=== PATIENT | female | born 1970 | race Caucasian/White ===

== ENCOUNTER 2018-10-14 14:24 | Inpatient (IN) | payer MEDICARE, MEDICAID ==
--- NOTE | 2018-10-14 14:48 | ED.PDOC ---
History of Present Illness - General Chief Complaint: Respiratory Problem Stated Complaint: cough and thinks she has pneumonia Time Seen by Provider: 10/14/18 14:34 Source: patient Exam Limitations: no limitations - History of Present Illness Initial Comments: Patient presents with a cough productive of yellow sputum for one week . She says that her breathing has become more "raspy" on the right side. It is worse when she lies on her right side. No dyspnea. + subjective fever. No other complaints. Timing/Duration: 1 week Severity: moderate Improving Factors: nothing Worsening Factors: nothing Associated Symptoms: denies symptoms Allergies/Adverse Reactions: Allergies Hydrocodone Adverse Reaction (Verified 10/14/18 14:30) Review of Systems - Review of Systems Constitutional: States: fever EENTM: States: no symptoms reported Respiratory: States: see HPI Cardiology: States: no symptoms reported Gastrointestinal/Abdominal: States: no symptoms reported Genitourinary: States: no symptoms reported Musculoskeletal: States: no symptoms reported Skin: States: no symptoms reported Neurological: States: no symptoms reported Endocrine: States: no symptoms reported Hematologic/Lymphatic: States: no symptoms reported Past Medical History (General) - Patient Medical History Hx Hypertension: Yes Hx Cancer: No Hx Hepatitis C: No Surgical History: Hysterectomy - Vaccination History Hx Tetanus, Diphtheria Vaccination: Yes Hx Influenza Vaccination: No - Social History Hx Alcohol Use: Yes - occ Hx Substance Use: No Hx Substance Use Treatment: No Hx Depression: No Family Medical History - Family History Mother Family History: Unknown Physical Exam - Physical Exam General Appearance: Alert Respiratory: other - rales in the left lower lobe and right middle lobe. No wheezes or rhonchi Cardiovascular/Chest: regular rate, rhythm Gastrointestinal/Abdominal: normal bowel sounds, non tender, soft Skin Exam: normal color Lymphatic: no adenopathy Progress - Progress Progress: 10/14/18 17:32 Laboratory Tests 10/14/18 10/14/18 10/14/18 15:12 15:12 15:12 WBC 13.1 H RBC 4.52 Hgb 14.5 Hct 42.8 MCV 94.8 MCH 32.2 H MCHC 34.0 RDW 14.5 Plt Count 168 MPV 8.8 Absolute Neuts (auto) 11.80 H Absolute Lymphs (auto) 0.70 L Absolute Monos (auto) 0.50 Absolute Eos (auto) 0.00 Absolute Basos (auto) 0.00 Neutrophils % 90.3 H Lymphocytes % 5.6 L Monocytes % 4.1 Eosinophils % 0.0 L Basophils % 0.0 pCO2 pO2 HCO3 ABG pH ABG O2 Saturation ABG Base Excess ABG Deoxyhemoglobin Oxyhemoglobin % Carboxyhemoglobin % Methemoglobin % Sat Calc Total Hemoglobin Sodium 136 Potassium 1.8 L* Chloride 76 L* Carbon Dioxide 44 H Anion Gap 17.8 BUN 20 H Creatinine 0.64 BUN/Creatinine Ratio 31.3 H Random Glucose 378 H Hemoglobin A1c 9.0 H Serum Osmolality 290.1 Calcium 8.8 Total Bilirubin 2.3 H* AST 45 H ALT 92 H Alkaline Phosphatase 248 H Serum Total Protein 6.2 L Albumin 3.4 Globulin 2.8 Albumin/Globulin Ratio 1.2 TSH Thyroxine (T4) Serum Ketones 10/14/18 10/14/18 10/14/18 15:12 15:12 16:05 WBC RBC Hgb Hct MCV MCH MCHC RDW Plt Count MPV Absolute Neuts (auto) Absolute Lymphs (auto) Absolute Monos (auto) Absolute Eos (auto) Absolute Basos (auto) Neutrophils % Lymphocytes % Monocytes % Eosinophils % Basophils % pCO2 43 pO2 51 L HCO3 45.9 ABG pH 7.630 H* ABG O2 Saturation 92.0 L ABG Base Excess 20.9 ABG Deoxyhemoglobin 7.4 H Oxyhemoglobin % 84.6 L Carboxyhemoglobin % 6.1 H Methemoglobin % Sat 1.9 H Calc Total Hemoglobin 12.4 Sodium Potassium Chloride Carbon Dioxide Anion Gap BUN Creatinine BUN/Creatinine Ratio Random Glucose Hemoglobin A1c Serum Osmolality Calcium Total Bilirubin AST ALT Alkaline Phosphatase Serum Total Protein Albumin Globulin Albumin/Globulin Ratio TSH 1.44 Thyroxine (T4) 5.28 L Serum Ketones Moderate CXR showed right middle lobe pneumonia. Patient given Rocephin 1 gram IV and Azithromycin 500 mg po x one in the ER. She was started on one liter NS and her potassium came back at 1.8. She was then started on potassium 40 meq IV in the E.R. The patient could not give a reason or any history that might indicate why her potassium was so low. She denies taking any diuretics or any history of hypokalemia. Her blood sugar was also 378. She denied any history of diabetes mellitus. I did a HbA1c and it was 9.0, confirming DM. She was given a second liter of NS in the ER. She had moderate ketones but was not given any insulin because of the potassium of 1.8. ABG showed a pH of 7.63 and 51 mmHg oxygen. She was started on oxygen by [place]. Her EKG showed NSR with visible T waves. She was admitted for pneumonia, new onset diabetes mellitus, hypokalemia, and hypoxemia. The plan was discussed with the patient, questions were elicited and answered, she voiced understanding and agreement with the plan. Departure - Departure Clinical Impression: Hypoxemia, Pneumonia, Hyperglycemia, Hypokalemia Disposition: Admit Patient Condition: Fair Departure Forms: ED Discharge - Pt. Copy, Patient Portal Self Enrollment Diet: diabetic diet Activity: increase activity as tolerated Referrals: CARLOTTA SHANKAR [Primary Care Provider] - 1-2 Weeks
--- NOTE | 2018-10-14 15:06 | RAD ---
EXAM DESCRIPTION: Chest,2 Views CLINICAL HISTORY: cough with fever COMPARISON: None TECHNIQUE: PA/lateral FINDINGS: Plate and screws in the lower C-spine. Heart size is normal with normal pulmonary vascularity. Right hemidiaphragm is elevated with patchy infiltrate or partial volume loss in the right middle lobe. Right superior mediastinum appears widened with increased density in the upper anterior clear space on the lateral view. Correlate with chest CT findings. Left lung is clear with no consolidating infiltrate. Lateral view shows intact sternum and T-spine. IMPRESSION: Elevated right diaphragm with discoid atelectasis or patchy infiltrate in the right middle lobe. Widened right anterior upper mediastinum. See above. Electronically signed by: Wilver Rod MD 10/14/2018 3:04 PM [facility]
[2018-10-14] MEDS ORDERED: AZITHROMYCIN 250 MG TAB PO ONE (15:25)
[2018-10-14] MEDS ORDERED: cefTRIAXone SODIUM 1 GM in SODIUM CHL 0.9% 50ML MIN-BAG+ 50 ML IVPB ONE (15:25)
[2018-10-14] MEDS ORDERED: SODIUM CHLORIDE 0.9% 1000ML 1,000 ML IVS ONE ×2 (15:30→16:50)
[2018-10-14] MEDS ORDERED: cefTRIAXone SODIUM 1 GM VIAL ONE (15:34)
[2018-10-14] MEDS ORDERED: SODIUM CHL 0.9% 50ML MIN-BAG+ 50 ML IVPB ONE (15:34)
[2018-10-14] MEDS ORDERED: KCL 40 MEQ/WATER FOR INJ 100ML 40 MEQ in PREMIX BAG 1 BAG IVPB ONE ×2 (15:46→22:03)
[2018-10-14] MEDS ORDERED: BENZONATATE PERLES 100 MG CAP PO ONE (15:58)
[2018-10-14] MEDS ORDERED: KCL 40 MEQ/WATER FOR INJ 100ML 100 ML IVPB ONE ×2 (16:19→22:21)
--- NOTE | 2018-10-14 18:50 | HP ---
SUPERVISING PHYSICIAN: Mike Gore MD CHIEF COMPLAINT: General malaise and shortness of breath. HISTORY OF PRESENT ILLNESS: This is a 47 year-old female patient who presented to the Emergency Room today for a productive cough, shortness of breath and generally feeling poorly for over one week. She has had difficulty sleeping eating and breathing over the last week. She has also had a productive cough producing yellow sputum. She had a cervical discectomy on August 27 and has had a difficult time getting over that. She said she had gotten a "water pill" after her surgery and since then she has had increased urination as well as increased thirst. It is to be noted that the patient is a very poor historian. In the Emergency Room her lab work showed a WBC of 13, 100 with a hemoglobin of 14.5 and hematocrit 42.8. She does have a left shift on her differential. Her blood gas showed a pH of 7.63 with a PO2 of 51. Her sodium is 136, potassium 1.8, chloride 76, carbon dioxide 44, BUN 20, creatinine 0.64, glucose 378 and [id number] 9. She denied ever being diagnosed with diabetes. Her magnesium was 2.2, bilirubin 2.3, AST 45, ALT 92, alkaline phosphatase 248, serum total protein 6.2, TSH 1.44 and T4 was 5.28. Urinalysis was essentially negative with the exception of urine glucose of 250. Serum ketones were moderate. Blood cultures were drawn. Chest x-ray shows elevated right diaphragm with discoid atelectasis, no patchy infiltrate in the right middle lobe. In the Emergency Room she was given potassium chloride rider , started on Ceftriaxone and Azithromycin. She was also given Tessalon Perles and I was called for hospital admission. PAST MEDICAL HISTORY: 1. Hypertension. 2. Neck pain. PAST SURGICAL HISTORY: 1. Hysterectomy. 2. Cervical discectomy in August of 2018. CURRENT MEDICATIONS: Unknown. The patient's is bringing her list in the morning. ALLERGIES: HYDROCODONE AND ADHESIVE TAPE. FAMILY HISTORY: Unknown. SOCIAL HISTORY: She lives in [place]. She sees Dr. Nathaniel Liu. She has a history of smoking but is down to 2 cigarettes daily. She drinks alcohol rarely and she denies any illicit drug use. REVIEW OF SYSTEMS: GENERAL: Positive for fever, fatigue, negative for weight changes. HEENT: Negative for sinus symptoms, ear pain, vision changes or sore throat. RESPIRATORY: Positive for shortness of breath and productive cough. Negative for wheezing. CARDIAC: Negative for palpitations, chest pain or tachycardia. GI: Negative for normal vaginal delivery or constipation. GENITOURINARY: Positive for polyuria, negative for hematuria, dysuria. MUSCULOSKELETAL: Positive for neck pain due to her urinary retention. Negative for myalgias, arthralgias. SKIN: Negative for lesions or rashes. NEURO: Negative for headaches, dizziness or seizures. PHYSICAL EXAMINATION: VITAL SIGNS: Temperature 99.5, heart rate 83, blood pressure 148/95, respiratory rate 20, 02 saturation 92% on room air. GENERAL: This is a 47 year-old female patient lying in her hospital bed. She is in no acute distress. HEENT: Normocephalic and atraumatic. Pupils equal and reactive. Oropharynx is clear. NECK: Supple without mass. CHEST: Some rhonchi scattered throughout all lung dodd, somewhat diminished at the bases. Chest has equal rise and fall of the chest with inspiration and expiration. CARDIOVASCULAR: ABDOMEN: Soft, nondistended, non-tender. Bowel sounds are positive. EXTREMITIES: No cyanosis, clubbing, or edema. NEUROLOGIC: She is awake, alert, and oriented x3. LABORATORY: Her followup potassium was 2.1. All other labs and films have been reviewed via the EMR. ASSESSMENT: 1. Right middle lobe pneumonia with hypoxia. Her ABG with a P02 of 51. She also has leukocytosis and a left shift on her differential. 2. Severe hypokalemia with a potassium of 1.8 and hypochloridemia with a chloride of 76. 3. New diagnosis of diabetes mellitus type 2 with a hemoglobin A1C of 9, blood sugar greater than 300. 4. Elevated LFTs. 5. Hypertension. PLAN: We will admit the patient to the hospital. I have initiated the pneumonia guidelines and will continue her azithromycin and Rocephin as started in the Emergency Room. She will have aggressive pulmonary toilet and I have ordered sputum cultures. Blood cultures are pending and we will monitor those. Her will bring her list of home medications tomorrow so will get those restarted as soon as they are verified. I will make her n.p.o. at midnight. If her liver functions continue to be elevated, I will do a sonogram and/or a CT of the abdomen. She will get another 40 mEq of potassium and I will also continue her fluids. Will repeat her labs in the morning as well as a chest x-ray. I have not started her on any kind of insulin at this time. We will wait until her potassium has normalized but she will need diabetic education as well as we will start her on a diabetic medication and will monitor closely and follow as needed. Dr. Gore is the collaborating physician available for consultation. #[id number] [facility]
[2018-10-14] MEDS ORDERED: LEVALBUTEROL NEBS 1.25 MG/3 ML VIAL INH PRN (20:58)
[2018-10-14] MEDS ORDERED: IV SET AND CAP CHANGE INJ INJ SCH (21:00)
[2018-10-14] MEDS: ENOXAPARIN SODIUM 40 MG/0.4 ML SYG SUBCU SCH (21:17)
[2018-10-14] MEDS: LEVALBUTEROL NEBS 1.25 MG/3 ML VIAL INH SCH (21:38)
[2018-10-15] MEDS ORDERED: SODIUM CHLORIDE 0.9% 500ML 500 ML ONE (02:31)
[2018-10-15] MEDS ORDERED: SODIUM CHLORIDE 0.9% 500ML 200 ML IVS ONE (02:41)
[2018-10-15] MEDS: PANTOPRAZOLE SODIUM IV 40 MG VIAL IV SCH (06:21)
--- NOTE | 2018-10-15 07:23 | RAD ---
EXAM: AP CHEST RADIOGRAPH CLINICAL INDICATION: Pneumonia. COMPARISON: Yesterday's chest radiograph at 1436 hours. FINDINGS: Cardiac size and pulmonary vasculature remain normal. Unchanged elevation of the right hemidiaphragm. Unchanged right basilar scar versus atelectasis. Unchanged right basilar consolidation. No pleural effusions or pneumothorax. Sequela of remote anterior cervical thoracic fusion surgery. Bones appear intact on this single view. IMPRESSION: Unchanged chest radiograph. No pneumothorax. Electronically signed by: Juan Carlos Tubbs MD 10/15/2018 7:21 AM [facility]
[2018-10-15] MEDS ORDERED: SODIUM CHLORIDE 0.9% 1000ML 1,000 ML IVS PRN (08:04)
[2018-10-15] MEDS ORDERED: POTASSIUM CHLORIDE 20 MEQ TAB PO ONE (08:10)
[2018-10-15] MEDS ORDERED: KCL 40 MEQ/WATER FOR INJ 100ML 40 MEQ in PREMIX BAG 1 BAG IVPB ONE (08:10)
[2018-10-15] MEDS ORDERED: KCL 40 MEQ/WATER FOR INJ 100ML 100 ML IVPB ONE (08:15)
[2018-10-15] MEDS ORDERED: cefTRIAXone SODIUM 1 GM VIAL ONE (08:15)
[2018-10-15] MEDS ORDERED: SODIUM CHL 0.9% 50ML MIN-BAG+ 50 ML IVPB ONE (08:16)
[2018-10-15] MEDS: SODIUM CHLORIDE 0.9% (FLUSH) 10 ML SYG IV PRN ×2 (08:31→11:47)
[2018-10-15] MEDS: LEVALBUTEROL NEBS 1.25 MG/3 ML VIAL INH SCH ×4 (08:58→19:59)
[2018-10-15] MEDS: guaiFENesin ER TAB 600 MG TAB PO SCH ×3 (10:00→21:20)
[2018-10-15] MEDS ORDERED: MORPHINE SULFATE INJ 10 MG/ML VIAL IV ONE (10:19)
[2018-10-15] MEDS: cefTRIAXone SODIUM 1 GM in SODIUM CHL 0.9% 50ML MIN-BAG+ 50 ML IVPB SCH (11:14)
[2018-10-15] MEDS ORDERED: SODIUM CHLORIDE 0.9% 250ML 250 ML ONE (11:24)
[2018-10-15] MEDS ORDERED: AZITHROMYCIN IV 500 MG VIAL IVPB ONE (11:25)
--- NOTE | 2018-10-15 11:42 | PN ---
SUPERVISING PHYSICIAN: Mike Gore MD DATE: 10/15/18 SUBJECTIVE: The patient is sitting in her hospital bed. She complains of shortness of breath. She was unable to do her CAT scan earlier due to her shortness of breath and she cannot lie flat. She also expressed that she wanted to go to [place] to have her tests done and I explained that her potassium was critically low and I had spoken to a marketing proposal coordinator for recommendations on her care and she has agreed to do the testing. She has had no chest pain, nausea, vomiting or diarrhea. OBJECTIVE: VITAL SIGNS: T-max 24 hours 99.6. Heart rate 84. Blood pressure 174/103, it has been as low as 143/79. Respiratory rate 20. O2 saturation has been 89% and is now 93% on 2 liter nasal cannula. RESPIRATORY: Coarse breath sounds throughout. She is diminished at the bases. CARDIAC: Regular rate and rhythm. GASTROINTESTINAL: Abdomen is soft, nondistended, nontender. Bowel sounds are positive. NEUROLOGIC: Awake, alert and oriented times three. LABORATORY: WBCs 13,000 with left shift on differential. Hemoglobin 14.1, hematocrit 41.5. Blood gas this morning shows pCO2 46, pO2 53, pH 7.56. O2 saturation 90.6. Sodium 140, potassium has dropped to 1.8, chloride 88, carbon dioxide 35, BUN 14, creatinine 0.55. Calcium 8.1, total bilirubin 2.2, AST 68, ALT 101, alkaline phosphatase 249, serum total protein 5.9, albumin 3.1. Urine drug screen positive for cannabinoids. Ethyl alcohol less than 5.4. Serum ketones are small. Preliminary blood cultures are negative. Chest x-ray shows unchanged chest radiograph. All other labs and films have been reviewed via the EMR. ASSESSMENT: 1. Right middle lobe pneumonia with hypoxia. Her arterial blood gases shows a pO2 of 53 today. Oxygen saturations have dropped as low as 89%. She continues to have leukocytosis and a left shift on differential. 2. Severe hypokalemia with a potassium of 1.8 this morning in spite of receiving 80 mEq of IV K-riders yesterday. She also has hypochloridemia with a chloride of 88. 3. New diagnosis of diabetes mellitus, type 2, with hemoglobin A1c of 9. 4. Elevated liver function tests. 5. Hypertension. 6. History of alcohol abuse. She admitted to drinking one case of beer daily 15 years ago. She said she drank for approximately 10 years before that. PLAN: We will continue present supportive care including azithromycin and Rocephin. Continue with good pulmonary hygiene. I spoke with Dr. Aguilar, marketing proposal coordinator, this morning and he recommended potassium replacement, which she received a 40 mEq K-rider this morning as well as 40 K-Dur [address] of the abdomen has been ordered with special emphasis on the liver and the adrenal glands. Dr. Aguilar also recommended a 24 hour urine for VMA, metanephrines, catecholamines, cortisol as well as fasting serum cortisol, renin and aldosterone level for tomorrow morning. Those have been ordered as well as routine labs. I have also ordered some Ativan in case she has some alcohol withdrawal. She is a poor historian and is very vague about her health history as well as her medications. At this point, we still do not have her home medications. Patient is noncompliant and frequently refuses medications, as well as respiratory treatments. She has also threatened to go AMA several times. I have spoken with her multiple times about how critically ill she is and she must take her medications as ordered. I will need to start her on some blood pressure medicine at some point, but we will call Dr. Liu's office for a list of medications as well as we will talk to Nelia Bales, her pharmacy in [place]. The patient initially wanted to go AMA, but after a lengthy discussion, she realizes the seriousness of her diagnoses and has agreed to current therapy. We will continue to monitor the patient closely. I may need to call Dr. Aguilar again in the morning for further guidance. Otherwise, we will continue to monitor the patient closely and follow as needed. #[id number] [facility]
[2018-10-15] MEDS: AZITHROMYCIN IV 500 MG in SODIUM CHLORIDE 0.9% 250ML 250 ML IVPB SCH (11:47)
--- NOTE | 2018-10-15 12:33 | CT ---
EXAM DESCRIPTION: Abdomen w/wo Contrast: Computed Tomography. CLINICAL HISTORY: elevated bilirubin and LFTS COMPARISON: None. TECHNIQUE: Spiral-axial scans at 5 x 5 mm intervals, from the diaphragms through the upper pelvis, before and after nonionic IV contrast. No oral contrast. Coronal and sagittal 2.0 mm reconstructions. 5 x 5 mm Delayed scans, 15 minutes after contrast injection, liver through the upper pelvis. No adverse reactions. DLP 1919.24 mGy-cm. This exam was performed according to our departmental CT dose-optimization program which includes automated exposure control, adjustment of the mA and/or kV according to patient size and/or use of iterative reconstruction technique; to reduce radiation dose to as low as reasonably achievable (ALARA). FINDINGS: Lung bases and pleura: Infectious consolidation in the inferior right middle lobe, versus atelectasis. Minimal atelectasis in the right lower lobe. Scarring versus atelectasis in the inferior lingula. No pleural effusion bilaterally. Liver, stomach, adrenal glands, and spleen: Long axis of the right hepatic lobe 15.5 cm. Minimal diffuse low-density without focal lesions. Inhomogeneous enhancement. Radiodense material in the stomach which is nondistended. Calcification of the gastroduodenal junction. No obstruction. Pancreas/Gallbladder/Ducts: Gallbladder is small and contracted. No surrounding fluid. Normal caliber of the duct. Spleen is unremarkable. Right adrenal gland measures 5.7 x 3.6 x 1.8 cm. Left adrenal gland measures 5.1 x 3.3 x 3.3 cm. Following density measurements in Hounsfield units. Precontrast density right +33 and left +28. Immediate postcontrast density right +93 and left +95. 15 minute postcontrast density, right +59 and left +48. No calcifications and no surrounding fatty stranding. Kidneys and Ureters: Negative. Mesentery: Unremarkable. No free air or free fluid. Small lymph nodes. Aorta: Moderate atherosclerotic calcification and intimal wall thickening. Minimal narrowing of the distal lumen. Small Bowel: Included segments are normal caliber. Radiodense material in some of the segments along with fluid. Terminal Ileum/Cecum: Not visualized. Colon: Included segments with minimal gas and fecal material. Distal descending colon and sigmoid colon not visualized. Small diverticula distal transverse colon and proximal descending colon. Suggestion of minimal fatty stranding abutting the segments of ascending colon and proximal transverse colon.. Spine: No lytic or blastic lesions. Abdominal Wall/Back Soft Tissues: Unremarkable. IMPRESSION: 1. Liver minimally enlarged and density suggests steatosis. Smooth capsule with no ascites. No focal lesions. Ducts are nondilated. Gallbladder was contracted. 2. Bilateral adrenal glands are enlarged, over 4 cm, cranio-caudal dimension. Delayed contrast washout in the right adrenal gland is approximately 44%, and in the left adrenal gland is approximately 42%. This most likely represents bilateral adrenal hypertrophy. 3. Minimal fatty stranding around the descending colon segment and proximal transverse colon. Indicate a nonspecific colitis. No free air or fluid. Electronically signed by: Tani Castañeda MD 10/15/2018 12:32 PM [employer] [employer]
[2018-10-15] MEDS: POTASSIUM CHLORIDE 20 MEQ TAB PO SCH (18:48)
[2018-10-15] MEDS: KCL 40MEQ/NS 1,000 ML IVS PRN (19:25)
[2018-10-15] MEDS: ENOXAPARIN SODIUM 40 MG/0.4 ML SYG SUBCU SCH (21:19)
[2018-10-16] MEDS: POTASSIUM CHLORIDE 20 MEQ TAB PO SCH (00:28)
[2018-10-16] MEDS: PANTOPRAZOLE SODIUM IV 40 MG VIAL IV SCH (06:15)
[2018-10-16] MEDS ORDERED: SODIUM CHL 0.9% 50ML MIN-BAG+ 50 ML IVPB ONE (08:01)
[2018-10-16] MEDS ORDERED: cefTRIAXone SODIUM 1 GM VIAL ONE (08:02)
[2018-10-16] MEDS ORDERED: POTASSIUM CHLORIDE 20 MEQ TAB PO ONE ×2 (08:11→16:26)
[2018-10-16] MEDS: cefTRIAXone SODIUM 1 GM in SODIUM CHL 0.9% 50ML MIN-BAG+ 50 ML IVPB SCH (08:15)
[2018-10-16] MEDS: guaiFENesin ER TAB 600 MG TAB PO SCH ×3 (08:22→20:56)
[2018-10-16] MEDS: BIFIDOBACTERIUM INFANTIS 4 MG CAP PO SCH (08:22)
[2018-10-16] MEDS ORDERED: POTASSIUM CHLORIDE INJ 40 MEQ 40 MEQ in SODIUM CHLORIDE 0.9% 250ML 250 ML IVPB ONE (08:30)
[2018-10-16] MEDS: LEVALBUTEROL NEBS 1.25 MG/3 ML VIAL INH SCH ×5 (09:10→20:24)
[2018-10-16] MEDS ORDERED: SODIUM CHLORIDE 0.9% 250ML 0 ML ONE (09:11)
[2018-10-16] MEDS ORDERED: SODIUM CHLORIDE 0.9% 250ML 250 ML ONE ×2 (09:14→09:15)
[2018-10-16] MEDS ORDERED: AZITHROMYCIN IV 500 MG VIAL IVPB ONE (09:14)
[2018-10-16] MEDS ORDERED: POTASSIUM CHLORIDE 40mEq 20ML VIAL ONE (09:15)
[2018-10-16] MEDS: AZITHROMYCIN IV 500 MG in SODIUM CHLORIDE 0.9% 250ML 250 ML IVPB SCH (09:29)
[2018-10-16] MEDS: KCL 40MEQ/NS 1,000 ML IVS PRN (12:21)
[2018-10-16] MEDS ORDERED: tiZANidine 4 MG TAB PO PRN (15:54)
[2018-10-16] MEDS: SPIRONOLACTONE 25 MG TAB PO SCH (17:31)
--- NOTE | 2018-10-16 18:27 | PN ---
DATE: 10/16/18 SUPERVISING PHYSICIAN: Mike Gore M.D. SUBJECTIVE: The patient is sitting up in her bed. Her family is at the bedside. Her shortness of breath has improved. She denies any chest pain, coughing, nausea or vomiting. She does complain of feeling anxious and unable to sleep. We discussed her treatment plan in that she would be seeing endocrinology as well as nephrology, GI and possibly a surgeon. She agreed with the plan of care. OBJECTIVE: VITAL SIGNS: She is afebrile, heart rate 104, blood pressure 119/ 84. It has been as high as 160/99. Respiratory rate 20, O2 sat 91%. It has gone as low as 87% on 2 liters nasal cannula. RESPIRATORY: Diminished breath sounds throughout. There is no wheezing. She does have an occasional scattered rhonchi throughout. CARDIAC: Regular rate and rhythm. At times she is slightly tachycardic. GASTROINTESTINAL: Abdomen is soft, nondistended, non- tender. Bowel sounds are positive. EXTREMITIES: No clubbing, cyanosis or edema. NEUROLOGIC: She is awake, alert and oriented times three. LABORATORY: WBCs have improved slightly to 12,700 with hemoglobin 13.4 and hematocrit 39.2. She continues to have a left shift on her differential. Potassium this morning was 2.6, chloride 90, carbon dioxide 33, BUN 8, creatinine 0.47, glucose 262, calcium 8.3. Total bilirubin 2.4. AST 80, ALT 120, alkaline phosphatase 280. Serum total protein 6, albumin 3. CT of the abdomen showed: 1) Liver minimally enlarged and density suggests steatosis. Smooth capsule with no ascites. No focal lesions. Ducts are nondilated. Gallbladder was contracted. 2) Bilateral adrenal glands are enlarged over 4 cm, cranio-caudal dimension. Delayed contrast washout in the right adrenal gland in approximately 44% and the left adrenal gland is approximately 42%. Most likely represents bilateral adrenal hypertrophy. 3) Minimal fatty stranding around the descending colon segment and proximal transverse colon indicate a nonspecific colitis. No free air or fluid. All other labs and films have been reviewed via the EMR. ASSESSMENT: 1. Right middle lobe pneumonia with hypoxia. Her arterial blood gases shows a pO2 of 53 yesterday. Oxygen saturations continue to be low in the upper 80s even on oxygen. She continues to have mild leukocytosis with a left shift on differential. 2. 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 3. Severe hypokalemia with a potassium of 2.6 this morning. She received 120 mEq of p.o. potassium yesterday as well as 40 mEq of IV K-riders. 4. New diagnosis of diabetes mellitus, type 2, with hemoglobin A1c of 9. 5. Elevated liver function tests. 6. Hypertension. 7. History of alcohol abuse. She admitted to drinking one case of beer daily 15 years ago. She drank alcoholic beverages for approximately 10 years before that. PLAN: We will continue present supportive care. I spoke at length with Dr. Aguilar, metallography teacher, and he recommended that she be placed on Aldactone 25 mg b.i.d. as well as to consult endocrinology I spoke with Dr. Dulce Maria Dumont, tank car mechanic in [place], and she agreed with that plan. She will see the patient next week after discharge. She agreed with Dr. Aguilar's recommendation of the Aldactone and her office would like to receive the testing that we ordered when resulted that includes the 24 hour urine and the serum ACTH, cortisol, renin and aldosterone. We are to call her office for an appointment next week. I also spoke to Dr. Mckinney, GI specialist. He reviewed her CAT scan as well as her lab testing. He said she would need a followup with GI but there was no need for a consultation in the hospital at this time, so we will arrange a followup appointment with him. I have started the patient on Aldactone 25 mg b.i.d. I will check her potassium in the morning , There is a potassium pending at this time. Once her potassium has stabilized she can be discharged for close followup with specialist as noted in the plan. Again, she continues to be very noncompliant and frequently refuses treatment and medications. Nursing has a very difficult time getting her to do anything they ask. I have had to repeatedly go in and get her to do take meds. Will monitor closely and follow as needed. Dr. Gore is the collaborating physician available for consultation. #[id number] [facility]
[2018-10-16] MEDS: ENOXAPARIN SODIUM 40 MG/0.4 ML SYG SUBCU SCH (20:55)
[2018-10-16] MEDS: CARVEDILOL 12.5 MG TAB PO SCH (20:55)
[2018-10-16] MEDS ORDERED: NON-FORMULARY MEDICATION 1 EA MIS (Carvedilol [Carvedilol] 25 MG) PO SCH (21:00)
[2018-10-17] MEDS: KCL 40MEQ/NS 1,000 ML IVS PRN (00:40)
[2018-10-17] MEDS: PANTOPRAZOLE SODIUM IV 40 MG VIAL IV SCH (06:01)
[2018-10-17] MEDS ORDERED: SODIUM CHLORIDE 0.9% 250ML 0 ML ONE (07:52)
[2018-10-17] MEDS ORDERED: SODIUM CHL 0.9% 50ML MIN-BAG+ 50 ML IVPB ONE (07:53)
[2018-10-17] MEDS ORDERED: cefTRIAXone SODIUM 1 GM VIAL ONE (07:53)
[2018-10-17] MEDS ORDERED: AZITHROMYCIN IV 500 MG VIAL IVPB ONE (07:54)
[2018-10-17] MEDS: LEVALBUTEROL NEBS 1.25 MG/3 ML VIAL INH SCH ×2 (08:14→12:35)
[2018-10-17] MEDS ORDERED: KCL 40 MEQ/WATER FOR INJ 100ML 40 MEQ in PREMIX BAG 1 BAG IVPB ONE (08:29)
[2018-10-17] MEDS ORDERED: KCL 40 MEQ/WATER FOR INJ 100ML 100 ML IVPB ONE (08:40)
[2018-10-17] MEDS: cefTRIAXone SODIUM 1 GM in SODIUM CHL 0.9% 50ML MIN-BAG+ 50 ML IVPB SCH (08:45)
[2018-10-17] MEDS: BIFIDOBACTERIUM INFANTIS 4 MG CAP PO SCH (08:45)
[2018-10-17] MEDS: CARVEDILOL 12.5 MG TAB PO SCH (08:45)
[2018-10-17] MEDS: guaiFENesin ER TAB 600 MG TAB PO SCH (08:45)
[2018-10-17] MEDS: SPIRONOLACTONE 25 MG TAB PO SCH (08:45)
[2018-10-17] MEDS: POTASSIUM CHLORIDE 20 MEQ TAB PO SCH ×2 (08:46→14:50)
[2018-10-17] MEDS ORDERED: POTASSIUM CHLORIDE 20 MEQ TAB PO ONE (09:11)
[2018-10-17] MEDS ORDERED: CEFDINIR 300 MG CAP PO SCH (09:30)
[2018-10-17] MEDS ORDERED: AZITHROMYCIN 250 MG TAB PO SCH (09:30)
[2018-10-17] MEDS ORDERED: guaiFENesin ER TAB 600 MG TAB PO SCH (10:26)
[2018-10-17] MEDS ORDERED: guaiFENesin ER TAB 600 MG TAB PO ONE (10:30)
--- NOTE | 2018-10-17 11:02 | RAD ---
EXAM DESCRIPTION: Chest,2 Views CLINICAL HISTORY: RML PNA COMPARISON: October 15, 2018 TECHNIQUE: PA/lateral FINDINGS: Two views of the chest demonstrate the left lung to remain clear. Chronic elevation of the right hemidiaphragm is present with crowded basilar markings in the medial lung base and patchy infiltrate overlying the hemidiaphragm. No significant pleural effusion is seen and no evidence of pneumothorax noted. Wide mediastinum in the right paratracheal region is again suggested and unchanged from prior study. Unable chest CT to further evaluate the anterior and superior mediastinum recommended. IMPRESSION: 1. Elevated right hemidiaphragm with persistent infiltrate/atelectasis in the mid and medial right lung base 2. Widened mediastinum in the right paratracheal and superior mediastinal region. Consider chest CT with contrast enhancement when able. Electronically signed by: Rell Medeiros MD 10/17/2018 11:01 AM [facility]
[2018-10-17 13:55] VITALS: BP 137/86; TEMP 98.4; O2SAT 95
[2018-10-17] MEDS ORDERED: MAGNESIUM OXIDE 400 MG TAB PO ONE (14:00)
--- NOTE | 2018-10-18 08:14 | DS ---
SUPERVISING PHYSICIAN: Mike Gore MD DISCHARGE DIAGNOSIS: 1. Right middle lobe pneumonia with hypoxia. Her arterial blood gases shows a pO2 of 53 on 10/15/18. Oxygen saturations continue to be low in the upper 80s even on oxygen. She continues to have mild leukocytosis with a left shift on differential. 2. 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 3. Severe hypokalemia with a potassium of 2.6 this morning. She received 120 mEq of p.o. potassium yesterday as well as 40 mEq of IV K-riders. 4. New diagnosis of diabetes mellitus, type 2, with hemoglobin A1c of 9. 5. Elevated liver function tests in a patient with a long history of alcohol abuse. 6. Hypertension. 7. History of alcohol abuse. She admitted to drinking one case of beer daily 15 years ago. She drank alcoholic beverages for approximately 10 years before that. HISTORY OF PRESENT ILLNESS: This is a 47-year-old female patient who presented to the Emergency Room due to a productive cough, shortness of breath and generally feeling poorly for over one week. She had difficulty sleeping, eating and breathing over the previous one to two weeks. Her cough also produced a yellow sputum. She had a cervical discectomy on August 27 and she had a difficult time getting over that and was frequently overmedicated. At some point, she had gotten a "water pill" after her surgery and had increased urination and increased thirst after her surgery. It is to be noted that the patient is a very poor historian and frequently changes her medical history. In the Emergency Room, WBC was 13,100 with a hemoglobin of 14.5 and hematocrit 42.8. She had a left shift on her differential. Her blood gas showed a pH of 7.63 with a PO2 of 51. Her sodium is 136, potassium 1.8, chloride 76, carbon dioxide 44, BUN 20, creatinine 0.64, glucose 378 and hemoglobin A1c 9. She denied ever being diagnosed with diabetes. Her magnesium was 2.2, bilirubin 2.3 , AST 45, ALT 92, alkaline phosphatase 248, serum total protein 6.2, TSH 1.44 and T4 was 5.28. Urinalysis was essentially negative with the exception of urine glucose of 250. Serum ketones were moderate. Blood cultures were drawn. Chest x-ray showed elevated right diaphragm with discoid atelectasis, no patchy infiltrate in the right middle lobe. In the Emergency Room, she was given potassium chloride rider of 40 mEq, started on ceftriaxone and azithromycin. She was admitted to the hospital. HOSPITAL COURSE: Over the next 24 hours, she was given multiple doses of p.o. and IV potassium. I spoke with Dr. Aguilar, tromper in [place], and he recommended to continue to replace her potassium and to get a CT of the abdomen with special emphasis on the liver and the adrenal glands. He also recommended that I order a 24 hour urine for VMA, metanephrines, catecholamines , cortisol as well as a fasting serum cortisol, renin, aldosterone and ACTH level. It was difficult to obtain the CAT scan initially due to the patient's hypoxia and movement. Subsequent blood gases were done and they had improved, but she was still in metabolic alkalosis, with a pH of 7.53. Per her CT, she was found to have enlarged adrenal glands and the patient was subsequently given Aldactone. She continued with her treatments for her pneumonia and her vital signs improved as well as her oxygen saturation. She was able to transition to room air. Vital signs remained stable other than she did have frequently elevated blood pressures. Her blood pressures ran between 126/83 and 174/103. We had a difficult time obtaining her actual outpatient medications. Approximately 24 hours after her admission, we did start her amitriptyline, carvedilol and tizanidine. After starting the Aldactone, her potassium level continued to improve. Today, it is as high as 3.1. Magnesium level remained stable throughout her hospital stay except today it was 1.7. She was given supplementation for that as well as her potassium. She was also started on 20 mEq of potassium t.i.d. During the patient's stay, I contacted Dr. Aguilar, tromper, as stated above. I also talked with Dr. Mckinney, reel cart operator, about her elevated liver enzymes and he felt there was no immediate need for him to see her and that he would see her after discharge from the hospital. I also spoke with Dr. Dulce Maria Dumont, coordinate measuring machine operator in [place], and she agreed with the testing that Dr. Aguilar had recommended and she would like those results sent to her after they are received. She would see the patient in clinic next week after her discharge from the hospital. We reviewed all her CT scan and laboratory testing. Other than seeing her next week, she had no further recommendations for testing or medication changes. Today, I spoke with her primary care physician, Dr. Nathaniel Liu, and he agreed to see her on Sunday with lab testing to check her potassium and magnesium. Her respiratory symptoms have improved. Her electrolytes have improved and she will be discharged home in stable condition. LABORATORY: Sodium 136, potassium 1.8 on admission and after multiple dosings of potassium, it is up to 3.1 today. Chloride 94, carbon dioxide 33, BUN 11, creatinine 0.52, glucose 274. Her glucose has run between 262 to 378. Bilirubin 2.2, AST 75, ALT 122, alkaline phosphatase 302, serum total protein 5.7, albumin 3. Hemoglobin 12.5, hematocrit 36.6, WBCs 11,400. Her preliminary blood cultures show no growth after 3 days. Sputum culture was negative and showed some contaminants. RADIOLOGY: Chest x-ray today was elevated right hemidiaphragm with persistent infiltrate/atelectasis in the right medial right lung base, wide mediastinum in the right paratracheal and supramediastinal region. Consider a chest CT with contrast enhancement as an outpatient. Her abdominal CT showed 1) Liver minimally enlarged with density suggests steatosis. Smooth capsule with no ascites, no focal lesions. Ducts are nondilated. Gallbladder was contracted. 2) Bilateral adrenal glands are enlarged, over 4 cm craniocaudal dimension, delayed contrast washout in the right adrenal gland is approximately 44% and in the left adrenal gland is approximately 42%. This most likely represents bilateral adrenal hypertrophy. 3) Minimal fatty stranding around the descending colon segment, proximal transverse colon indicates a nonspecific colitis. No free air or fluid. DISCHARGE PLAN: The patient will be discharged home in stable condition. She has been given a prescription for albuterol sulfate nebulizer treatments and has been instructed to buy a nebulizer machine. She has been given azithromycin and cefdinir as well as guaifenesin. She is also to have potassium 20 mEq p.o. t.i.d. and Spironolactone 25 mg b.i.d. She has a followup appointment with Dr. Nathaniel Liu on 10/21/18 at 10 AM. It is recommended that she get her electrolytes drawn at that time and it also would be beneficial to schedule a CT of the chest at some point. She has an appointment with Dr. Dulce Maria Dumont on 10/23/18 at 11:10 AM. In addition to her adrenal issues, I recommend patient be treated for diabetes mellitus. Her sugars were not treated here due to her critical potassium levels. She also needs a followup appointment with Dr. Enio Mckinney, reel cart operator. She is to increase her activity as tolerated. She is to return to the hospital or followup with Dr. Liu for any problems or complications. DISCHARGE MEDICATIONS: 1. Tizanidine. 2. Carvedilol. 3. Amitriptyline. 4. Cefdinir. 5. Potassium chloride. 6. Albuterol sulfate nebulizers. 7. Azithromycin tablets. 8. Guaifenesin. 9. Spironolactone. #[id number] [facility]
== END 2018-10-17 15:40 | disposition home or self-care (01) | DRG 194 ==
LOC: ER 14:24 → MS 18:49
PROVIDERS: ADMIT Nurse Practitioner Acute Care; ATTEND Nurse Practitioner Acute Care
DX: J18.9 Pneumonia, unspecified organism (principal); J98.11 Atelectasis; I10 Essential (primary) hypertension; Z88.5 Allergy status to narcotic agent; F17.210 Nicotine dependence, cigarettes, uncomplicated; R33.9 Retention of urine, unspecified; R09.02 Hypoxemia; E87.6 Hypokalemia; E11.9 Type 2 diabetes mellitus without complications; E26.9 Hyperaldosteronism, unspecified; F10.20 Alcohol dependence, uncomplicated